=== PATIENT | female | born 1960 | race Caucasian/White ===

== ENCOUNTER → 2016-12-09 | Outpatient (CLI) | payer OTHER ==
[2013-10-21 11:30] VITALS: BP 94/63
[~2016-12-09] MED LIST: CHOL3000 PO; ESOM40SU PO; LEVO25TA4 PO; RIVA15TA PO; SUCR1TAB35 PO
--- NOTE | 2016-12-09 10:18 | RAD ---
Indication: Right arm pain. Technique: Grayscale, color-flow, and spectral waveform analysis of the right upper extremity was performed. Findings: All visualized vein segments are compressible. There is normal phasicity of waveform and augmentation. No thrombus on grayscale or color imaging is apparent. Impression: Exam is negative for deep vein thrombosis in the right upper extremity.
== END | disposition home or self-care (01) ==
LOC: US 08:05
PROVIDERS: ATTEND Internal Medicine Hematology & Oncology
DX: D47.2 Monoclonal gammopathy (principal); M79.601 Pain in right arm
CPT/HCPCS: 93971

== ENCOUNTER → 2017-10-16 | Outpatient (CLI) | payer OTHER ==
[2013-10-21 11:30] VITALS: BP 94/63
[~2017-10-16] MED LIST changes: +CYAN250012 SL; +CYCL10TA2 PO; +FOLI1TAB16 PO; +ONDA8TAB9 PO; +OXYC-323 PO; +PHEN-318 PO; +PROAIR HFA8.5 GM INH; +SENN1TAB70 PO; +TRIA15CR TP
[2017-10-16 15:17] LABS: BASO # 0.1 x10^3/uL (0.0-0.2); BASO % 1 % (0-3); EOS # 0.1 x10^3/uL (0.0-0.7); EOS % 1 % (0-3); HEMATOCRIT 37.8 % (36.0-47.0); HEMOGLOBIN 13.2 g/dL (12.0-15.5); LYMPH # 3.3 x10^3/uL (1.0-4.8); LYMPH % 33 % (24-48); MEAN CORPUSCULAR HEMOGLOBIN 34 pg (25-35); MEAN CORPUSCULAR HGB CONC 35 g/dL (31-37); MEAN CORPUSCULAR VOLUME 99 fL (79-100); MONO # 0.5 x10^3/uL (0.0-1.1); MONO % 5 % (0-9); NEUT # 6.1 x10^3uL (1.8-7.7); NEUT % 60 % (31-73); PLATELET COUNT 384 x10^3/uL (140-400); RED BLOOD COUNT 3.84 x10^6/uL (3.50-5.40); RED CELL DISTRIBUTION WIDTH 12.5 % (11.5-14.5); WHITE BLOOD COUNT 10.1 x10^3/uL (4.0-11.0)
[2017-10-16 15:40] LABS: ALBUMIN 3.6 g/dL (3.4-5.0); CALCIUM 9.4 mg/dL (8.5-10.1); CREATININE 0.9 mg/dL (0.6-1.0); GFR 64.5; TOTAL BILIRUBIN 0.6 mg/dL (0.2-1.0)
== END | disposition home or self-care (01) ==
LOC: SURGPAT 14:18
PROVIDERS: ATTEND Surgery
DX: K82.9 Disease of gallbladder, unspecified (principal); Z87.442 Personal history of urinary calculi; Z87.440 Personal history of urinary (tract) infections; Z85.43 Personal history of malignant neoplasm of ovary; Z85.42 Personal history of malignant neoplasm of other parts of uterus; Z85.3 Personal history of malignant neoplasm of breast; Z90.49 Acquired absence of other specified parts of digestive tract; Z90.710 Acquired absence of both cervix and uterus
CPT/HCPCS: 36415; 80048; 82040; 82247; 85025

== ENCOUNTER → 2017-10-22 | Day surgery (SDC) | payer OTHER ==
[~2017-10-22] VITALS: Ht 177.8 cm; Wt 86.6 kg
[~2017-10-22] MED LIST changes: +BUPIVACAINE-EPI 0.25%-1:200000 50 ML VIAL. ONE; +DEXAMETHASONE SOD PHOS 20 MG/5 ML VIAL. ONE; +GLUCAGON,HUMAN RECOMBINANT 1 MG/ML VIAL. ONE; +GLYCOPYRROLATE 1 MG/5 ML VIAL. ONE; +HYDROmorphone 2 MG/ML VIAL IV PRN; +IOHEXOL 300 MG/ML 100ML VIAL. ONE; +IV RINGERS,LACTATED 1000ML 1,000 ML IV SCH; +KETOROLAC 30 MG/ML INJ FOR OR. INJ ONE; +LIDOCAINE 1% PF 2 ML VIAL. ID PRN; +LIDOCAINE 1% PF 5 ML VIAL. ONE; +MORPHINE SULFATE 2 MG/ML VIAL. IV PRN; +NEOSTIGMINE METHYLSULFATE 5 MG/5 ML SYRINGE. ONE; +ONDANSETRON PF 4 MG/2 ML VIAL. IV PRN; +ONDANSETRON PF 4 MG/2 ML VIAL. ONE; +PROCHLORPERAZINE 10 MG/2 ML VIAL. ONE; +PROPOFOL 20 ML IV ONE; +ROCURONIUM 50 MG/5 ML VIAL. ONE; +SCOPOLAMINE 1.5MG PATCH. TD ONE; +SEVOFLURANE 31 TO 60 MINUTES. IH ONE; +SEVOFLURANE 61 TO 120 MINUTES. IH ONE; +SURGICEL HEMOSTAT 4X8 EACH. ONE; +ceFAZolin SODIUM 1 GM VIAL ONE; +fentaNYL PF VIAL 100 MCG/2 ML VIAL IV PRN; +fentaNYL PF VIAL 100 MCG/2 ML VIAL ONE; +oxyCODONE/APAP 5/325 1 TAB TABLET PO ONE
--- NOTE | 2017-10-22 10:52 | RAD ---
EXAM: Intraoperative cholangiogram HISTORY: Cholecystectomy. COMPARISON: None. FINDINGS: 3 fluoroscopic images were obtained during an intraoperative cholangiogram. The images demonstrate contrast opacification of the biliary tree and proximal duodenum. There is no evidence of a retained stone or stricture. The total fluoroscopy time is 0.1 minute. IMPRESSION: Intraoperative plantar without evidence of a retained stone or stricture. Electronically signed by: Brooke Wilder MD (10/22/2017 10:48 AM) [facility]
--- NOTE | 2017-10-22 11:19 | PDOC ---
BRIEF OPERATIVE NOTE Date: Oct 22, 2017 Pre-Op Diagnosis RUQ pain Post-Op Diagnosis same, liver nodule Procedure Performed l/s cholecystectomy with cholangiograms, liver biopsy Surgeon [place] Sox Analyst Rosalva Christy Anesthesia Type: General Blood Loss 25cc IV Fluid 2000cc Specimens Obtained GB Findings supple GB, normal grams, exophytic nodule lateral margin right lobe liver Complications none Operative Note Wk # [id number] GLENN KEARNEY MD Oct 22, 2017 11:19
--- NOTE | 2017-10-22 11:20 | DISCH ---
DISCHARGE INSTRUCTIONS Condition on Discharge Condition on Discharge: Stable Activity After Discharge Activity Instructions for Disc: Activity as tolerated, Avoid exertion Lifting Instructions after Dis: No heavy lifting Driving Instructions after Dis: Do not drive (for 3-4 days) Diet after Discharge Diet after Discharge: Regular Wound Incision Care Wound/Incision Care: Ice to area for comfort Other wound/incision instructi: june showthursday GLENN KEARNEY MD Oct 22, 2017 11:20
[2017-10-22] MEDS: fentaNYL PF VIAL 100 MCG/2 ML VIAL IV PRN ×2 (11:35→11:57)
[2017-10-22] MEDS: PROCHLORPERAZINE 10 MG/2 ML VIAL. IV PRN ×2 (11:39→11:57)
--- NOTE | 2017-10-22 11:41 | OP ---
DATE OF SURGERY: 10/22/2017 PREOPERATIVE DIAGNOSIS: Right upper quadrant pain. POSTOPERATIVE DIAGNOSIS: Right upper quadrant pain with a liver nodule. PROCEDURE: Laparoscopic cholecystectomy with cholangiograms, liver biopsy. SURGEON: Clayton Kearney MD [employer] INSTALLER: Dr. Ramirez and BROCK Alegre ANESTHESIA: General endotracheal. ESTIMATED BLOOD LOSS: 25 mL. INTRAVENOUS FLUID: 2 liters. INDICATIONS: The patient is a 57-year-old with right upper quadrant postprandial pain. She is brought for cholecystectomy. OPERATIVE FINDINGS: The gallbladder was supple. Cholangiograms were normal. A 2 x 3 cm exophytic nodule was present on the lateral aspect of right lobe of the liver. Visual inspection of the remainder of the abdomen failed to reveal obvious abnormalities. DESCRIPTION OF PROCEDURE: The patient brought to the operating suite, given a general endotracheal anesthetic and the abdomen prepped and draped in usual sterile fashion. An infraumbilical incision was infiltrated with local anesthetic, incised and a 5 mm Visiport used to safely gain access into the abdominal cavity. Pneumoperitoneum established. Camera inserted. Inspection carried out with results as noted above. With the table in reverse Trendelenburg rolled to the left, the epigastric, midclavicular, and lateral ports were placed under direct vision. The gallbladder was retracted superolaterally and the cystic duct and cystic artery were identified. The duct was clipped on the gallbladder side. Cholangiograms were made. These were normal. In light of this, the catheter was removed. The cystic duct was clipped x 3 and divided, taking care to avoid injury or compromise to the common duct. An anterior and posterior branch of the cystic artery were clipped and divided, and the gallbladder freed from the bed. Prior to freeing the gallbladder from the liver bed, scissors were used to biopsy the lateral lobe nodule. Good hemostasis obtained with cautery. Gallbladder was then freed from the fossa and placed in an EndoCatch bag. Good hemostasis was present at both the biopsy site and the gallbladder fossa. No evidence of bile leak was seen. Gallbladder delivered through the epigastric incision. Epigastric incision closed with interrupted 0 Vicryl suture. Intra-abdominal pressure decreased to 6 cm of water. No bleeding from the epigastric closure or from the midclavicular port site or lateral port after its removal. Abdomen decompressed, camera slowly removed, no bleeding seen. Skin incisions closed with subcuticular 4-0 Monocryl. Steri-Strips and sterile dressing applied. The patient awakened from her anesthetic and taken to the recovery room in satisfactory condition. CLAYTON KEARNEY MD DR: NICOLAS/sally JOB#: [id number] / [id number]
[2017-10-22 13:15] VITALS: BP 133/70
== END ==
LOC: SURG 08:36
PROVIDERS: ATTEND Surgery
DX: K82.8 Other specified diseases of gallbladder (principal); G51.0 Bell's palsy; E03.9 Hypothyroidism, unspecified; K21.9 Gastro-esophageal reflux disease without esophagitis; J45.909 Unspecified asthma, uncomplicated; F17.210 Nicotine dependence, cigarettes, uncomplicated; E66.3 Overweight; Z68.27 Body mass index [BMI] 27.0-27.9, adult; Z79.899 Other long term (current) drug therapy; Z72.89 Other problems related to lifestyle; Z98.890 Other specified postprocedural states; Z90.49 Acquired absence of other specified parts of digestive tract; Z90.710 Acquired absence of both cervix and uterus; Z85.42 Personal history of malignant neoplasm of other parts of uterus; Z85.43 Personal history of malignant neoplasm of ovary; Z85.3 Personal history of malignant neoplasm of breast; Z87.442 Personal history of urinary calculi; Z87.440 Personal history of urinary (tract) infections; Z88.7 Allergy status to serum and vaccine; Z88.8 Allergy status to other drugs, medicaments and biological substances; Z88.6 Allergy status to analgesic agent; Z91.040 Latex allergy status
CPT/HCPCS: 47562; 74300; J0690; J0780; J1100; J2405; J2704; J2710; J3010; J3490; J7030; J7120; Q9967; A7015; J1610; J1885

== ENCOUNTER → 2019-12-09 | Outpatient (CLI) | payer OTHER ==
[2017-10-22 13:15] VITALS: BP 133/70
[~2019-12-09] MED LIST changes: +ALBU2.5V8 INH; -BUPIVACAINE-EPI 0.25%-1:200000 50 ML VIAL. ONE; -DEXAMETHASONE SOD PHOS 20 MG/5 ML VIAL. ONE; +GADOTERATE 7.5 MMOL/15ML VIAL. IVP ONE; -GLUCAGON,HUMAN RECOMBINANT 1 MG/ML VIAL. ONE; -GLYCOPYRROLATE 1 MG/5 ML VIAL. ONE; -HYDROmorphone 2 MG/ML VIAL IV PRN; -IOHEXOL 300 MG/ML 100ML VIAL. ONE; -IV RINGERS,LACTATED 1000ML 1,000 ML IV SCH; -KETOROLAC 30 MG/ML INJ FOR OR. INJ ONE; -LIDOCAINE 1% PF 2 ML VIAL. ID PRN; -LIDOCAINE 1% PF 5 ML VIAL. ONE; -MORPHINE SULFATE 2 MG/ML VIAL. IV PRN; -NEOSTIGMINE METHYLSULFATE 5 MG/5 ML SYRINGE. ONE; -ONDANSETRON PF 4 MG/2 ML VIAL. IV PRN; -ONDANSETRON PF 4 MG/2 ML VIAL. ONE; -OXYC-323 PO; +OXYC1TAB15 PO; -PROAIR HFA8.5 GM INH; -PROCHLORPERAZINE 10 MG/2 ML VIAL. ONE; -PROPOFOL 20 ML IV ONE; -ROCURONIUM 50 MG/5 ML VIAL. ONE; -SCOPOLAMINE 1.5MG PATCH. TD ONE; -SEVOFLURANE 31 TO 60 MINUTES. IH ONE; -SEVOFLURANE 61 TO 120 MINUTES. IH ONE; -SURGICEL HEMOSTAT 4X8 EACH. ONE; -ceFAZolin SODIUM 1 GM VIAL ONE; -fentaNYL PF VIAL 100 MCG/2 ML VIAL IV PRN; -fentaNYL PF VIAL 100 MCG/2 ML VIAL ONE; -oxyCODONE/APAP 5/325 1 TAB TABLET PO ONE
--- NOTE | 2019-12-09 16:00 | KCIC ---
MRI Lumbar Spine without and with contrast History: Lumbar radiculopathy, microdiscectomy at L5-S1, right leg swelling, right lower extremity numbness Technique: Multiplanar, multi sequential pre and postcontrast MR imaging was performed of the lumbar spine. Comparison: None Findings: Lumbar vertebral body stature is maintained. There is negligible anterior spondylolisthesis L4-5. There is overall mild degenerative disc disease L3-4 through L5-S1. There are some small Tarlov cysts of the sacrum, largest on the left at S1 to about 1 cm. There is small posterior annular tear L5-S1. Conus terminates at L1. L1-2, L2-3: These levels were not included on the axial images. Neural foramina and spinal canal are adequate. L3-L4: There is minimal disc osteophyte complex. There is mild to moderate buckling of the ligamentum flavum and facet degenerative change greater on the left. There is minimal fluid in the right facet articulation. There is negligible disc osteophyte complex and bulge. There is mild narrowing of the far left lateral recess. There is minimal narrowing of the left neural foramen, right neural foramen adequate. L4-L5: There is mild buckling of the ligamentum flavum. There is gukw-[id number] right and mild left facet degenerative change. There is mild narrowing of the far left lateral recess. There is very mild narrowing of the inferior neural foramina bilaterally by minimal disc osteophyte complex. L5-S1: There is negligible disc osteophyte complex. Spinal canal and left neural foramen are adequate. There is mild narrowing of the inferior distal right neural foramen by disc osteophyte. There is contact of the extraforaminal right L5 nerve root by disc osteophyte complex and probable small protrusion Impression: 1. There is no significant lumbar spinal stenosis, mild narrowing of the far left lateral recesses at L3-4 and L4-5. There is mild neural foramina compromise as stated. There is contact of the extraforaminal right L5 nerve root by disc osteophyte complex and likely protrusion. There is mild degenerative disc disease L3-4 through L5-S1. Electronically signed by: Alex Carroll MD (12/09/2019 3:57 PM) [facility]
== END ==
LOC: KCIC MRI 13:04
PROVIDERS: ATTEND Psychiatry & Neurology Neurology with Special Qualifications in Child Neurology
DX: M51.17 Intervertebral disc disorders with radiculopathy, lumbosacral region (principal); M48.07 Spinal stenosis, lumbosacral region; M25.78 Osteophyte, vertebrae
CPT/HCPCS: 72158; 82565; A9575

== ENCOUNTER → 2020-05-21 | Outpatient (CLI) | payer OTHER ==
[2017-10-22 13:15] VITALS: BP 133/70
[~2020-05-21] MED LIST changes: +CARI250T PO; +CRESTOR5 MG PO; +CYAN10002 IM; +ERGO500027 PO; +EZET10TA20 PO; -GADOTERATE 7.5 MMOL/15ML VIAL. IVP ONE; +LEVO7.5T7 PO; +LUBI24CA7 PO; +OMEP20TA63 PO; +UBID200C27 PO
--- NOTE | 2020-05-21 12:58 | PDOC1 ---
INITIAL PAIN CONSULT DATE OF SERVICE: DOS: DATE: 05/21/20 TIME: 12:51 CHIEF COMPLAINT: Chief Complaint: Low back and right lower extremity pain HISTORY OF PRESENT ILLNESS: 60-year-old female presents history of pain low back right lower extremity since March 2019 not the result of any specific injury or accident that she is aware of chemo fairly abruptly was not the result of an injury but has been very painful in the low back rating the right lower extremity posterior gluteus posterior thigh posterior calf into the foot and toes as well on the right side patient ports cramping tingling numbness in the leg can be constant and shooting with walking standing worse with standing better with sitting or laying down but awakens her from sleep about 2-3 times at night patient reports is not effective bowel bladder control or ability to walk significantly but is more painful with standing patient reports she is taking Soma as well as amitriptyline and Lyrica the amitriptyline does help with the other 2 do not she is tried other [id number] anti-inflammatories without significant improvement as well patient reports has not had any formal physical therapy recently does do some stretching on her own no chiropractic treatment or other modalities of treatment at this time. Patient reports no bowel or bladder incontinence but some urgency with the pain at its worse. Patient scribes pain is constant shooting tingling and numbness in the right lower extremity aching and dull across the low back with cramping in the back as well patient rates her disability rating 0-10 10 being the worst is a 7 with family home responsibilities and recreation patient is a 4 with self-care and 0 life support activities. Patient have MRI scan of the lumbar spine showing mild narrowing of the far left lateral recess at L3-4 and L4-5 with mild neuroforaminal compromise L5-S1 showing contact of the extraforaminal right L5 nerve root by disc osteophyte complex and probable small protrusion. PAST MEDICAL HISTORY: PMH: History of ovarian and breast cancer, cigarette smoking, irritable bowel syndrome PREVIOUS SURGERIES: Past Surgical Hx: Hysterectomy, cholecystectomy, appendectomy, kyphoplasty, discectomy, breast surgery CURRENT MEDICATIONS: Current Meds: Active Scripts Medications Dose Route/Sig Max Daily Dose Days Date Category L-Methylfolate (Levomefolate Calcium) 7.5 Mg Tablet 5 Mg PO DAILY 05/21/20 Reported Coenzyme Q-10 (Ubidecarenone) 200 Mg Capsule 1 Cap PO DAILY 30 05/21/20 Reported Soma (Carisoprodol) 250 Mg Tablet 250 Mg PO TID 05/21/20 Reported Vitamin D2 (Ergocalciferol (Vitamin D2)) 1,250 Mcg Capsule 50,000 Units PO WEEKLY 05/21/20 Reported Amitiza (Lubiprostone) 24 Mcg Capsule 1 Cap PO BID 30 05/21/20 Reported Prilosec Otc (Omeprazole Magnesium) 20 Mg Tablet.dr 40 Mg PO DAILY 05/21/20 Reported Zetia (Ezetimibe) 10 Mg Tablet 10 Mg PO DAILY 05/21/20 Reported Crestor (Rosuvastatin Calcium) 5 Mg Tablet 10 Mg PO 3X/WEEK 05/21/20 Reported Cyanocobalamin Injection (Cyanocobalamin (Vitamin B-12)) 1,000 Mcg/1 Ml Vial 1 Ml IM QMONTH 05/21/20 Reported Proair Hfa Inhaler (Albuterol Sulfate) 8.5 Gm Hfa.aer.ad 1 Puff INH PRN Q6HRS PRN 10/22/17 Reported Zofran (Ondansetron Hcl) 8 Mg Tablet 8 Mg PO BID PRN 10/16/17 Reported Levothyroxine Sodium 25 Mcg Tablet 25 Mcg PO DAILY 05/15/13 Reported ALLERGIES; Allergies: Coded Allergies: NSAIDS (Non-Steroidal Anti-Inflamma (Verified Allergy, Intermediate, LYMPHOCYTIC COLITIS, 10/22/17) celecoxib (Verified Allergy, Intermediate, Swelling, 10/22/17) dichloralphenazone (Verified Allergy, Intermediate, 10/22/17) diphenhydramine (Verified Allergy, Intermediate, swelling, 10/22/17) swelling hydrocortisone (Verified Allergy, Intermediate, 10/22/17) influenza virus vaccine, specific (Verified Allergy, Intermediate, ARMENTA'S PALSY, 10/22/17) isometheptene mucate (Verified Allergy, Intermediate, 10/22/17) latex (Verified Allergy, Intermediate, 10/22/17) nitrofurantoin (Verified Allergy, Intermediate, 10/22/17) propoxyphene (Verified Allergy, Intermediate, SWELLEING, 10/22/17) FAMILY HISTORY: Family Hx: Colon cancer, strokes, heart disease SOCIAL HISTORY: Social Hx: Patient does not drink alcohol smokes less than a pack a day cigarettes has for 30 years not use any illegal illicit recreational drugs, patient is a registered nurse and works locally. REVIEW OF SYSTEMS: ROS: Positive for those items mentioned in history of present illness, all systems are reviewed, otherwise negative ,and are complete full and well-documented on patient's chart. PHYSICAL EXAM: VS: Blood pressure is 123/83 pulse 81 respirations 18 temperature 98.5 F height is 5 feet 10 inches weight is 216 pounds PE: PHYSICAL EXAMINATION: GENERAL: The patient is awake, alert, oriented, appropriate, very pleasant demeanor HEENT: Shows normocephalic, atraumatic. Extraocular movements are intact and symmetrical. Patient wearing eyeglasses oral cavity: Mucous membranes moist and pink. Dentition is intact. NECK: Shows anterior throat supple without palpable lymphadenopathy noted. Swallow reflex symmetrical. CHEST: Shows normal on inspection. Breath sounds are clear bilaterally, no rales or rhonchi auscultated. HEART: Shows S1, S2 clear. No murmurs auscultated. ABDOMEN: Soft, nontender, nondistended, obese. No palpable organomegaly is noted. No rebound or guarding demonstrated. BACK: Shows spine grossly in the midline. Normal-appearing cervical lordotic curvature. There is slightly increased thoracic kyphosis, some minor flattening of the lumbar lordotic curvature. Lumbar paraspinous muscles show symmetrical on inspection, on palpation shows some moderate tenderness diffusely throughout the upper, middle and lower distribution of the paraspinous muscles bilaterally and also into the lower thoracic paraspinous musculature, firm and tender, but without specific trigger points, without radiation of pain. The patient has good rotational motion of the lumbar spine, both laterally as well as extension and flexion without significant difficulty. No tenderness over the spinous processes, sacrum or sacroiliac regions. EXTREMITIES: Lower extremities show deep tendon reflexes 2+ in the patellar and tendo calcaneus tendons. Motor exam is 4 on a scale of 5 with right dorsiflexion, extension, quadriceps and hamstring flexion and 5/5 on the left. Peripheral pulses are 1+ posterior tibial. No peripheral edema is noted bilaterally. Lower extremities are warm and dry to touch, equal in color and appearance. Straight leg raise noted to be negative bilaterally. Gaenslen's and Wojciech's maneuvers are negative bilaterally as well. The patient is able to stand, stand on her toes that significant difficulty or loss of balance, walks with a normal-appearing gait not use any assistive devices to ambulate. SKIN: Shows warm and dry, good turgor. No edema. No sores, rashes or bruising throughout. IMPRESSION: Impression: 60-year-old female with long history low back right lower extremity pain in a radicular fashion MRI scan lumbar spine as noted Cigarette smoking Hypothyroidism Plan: Options were discussed with the patient including conservative medical management physical therapies interventional techniques. Patient would like to pursue interventional techniques. We discussed a lumbar epidural steroid injections description as well as anatomical model to describe the procedure. Patient will wait for preauthorization with her insurance provider once this is obtained we will plan on lumbar epidural steroid injection at that time a translaminar approach at the L5-S1 level with fluoroscopic guidance. In the meantime patient will continue with stretching strength exercises and medications as currently. FILIBERTO GARCIA MD May 21, 2020 12:58
== END | disposition home or self-care (01) ==
LOC: PNCL 07:45
PROVIDERS: ATTEND Anesthesiology
DX: M54.5 Low back pain (principal); M79.604 Pain in right leg; J45.909 Unspecified asthma, uncomplicated; K21.9 Gastro-esophageal reflux disease without esophagitis; E03.9 Hypothyroidism, unspecified; Z85.3 Personal history of malignant neoplasm of breast; Z79.899 Other long term (current) drug therapy; Z98.890 Other specified postprocedural states; Z87.448 Personal history of other diseases of urinary system; Z90.710 Acquired absence of both cervix and uterus; Z90.49 Acquired absence of other specified parts of digestive tract; Z80.0 Family history of malignant neoplasm of digestive organs; Z82.49 Family history of ischemic heart disease and other diseases of the circulatory system; Z88.0 Allergy status to penicillin; Z88.1 Allergy status to other antibiotic agents; Z88.2 Allergy status to sulfonamides; Z91.040 Latex allergy status; Z88.8 Allergy status to other drugs, medicaments and biological substances
CPT/HCPCS: 99205; G0463

== ENCOUNTER → 2020-06-15 | Outpatient (CLI) | payer OTHER ==
[2017-10-22 13:15] VITALS: BP 133/70
[~2020-06-15] MED LIST changes: +IOHEXOL 180 MG/ML 10 ML VIAL. ONE; +methylPREDNISolone ACETATE 40 MG/ML VIAL. ONE; +methylPREDNISolone ACETATE 80 MG/ML VIAL. ONE
--- NOTE | 2020-06-15 08:17 | PDOC4 ---
PROCEDURE Procedure Patient was consented for lumbar epidural steroid injection. Risks were dis cussed including but not limited to: Bleeding, infection, possibility of epidural hematoma and subsequent neurological compromise, dural puncture, headaches, spinal cord and/or nerve damage, side effects of steroid medication, and poor results regarding pain control. Patient understands and wished to proceed. Procedure is lumbar epidural steroid injection under local anesthetic using sterile prep and drape at the L4-5 level using C-arm fluoroscopic guidance in both AP and lateral views medications injected is 120 mg Depo-Medrol + 10 mL preservative-free normal saline and 2 mL contrast- condition at discharge is stable patient tolerated procedure well had no complications. FILIBERTO GARCIA MD Jun 15, 2020 08:17
--- NOTE | 2020-06-15 08:17 | PDOC ---
Progress Note - Pain Clinic Date of Service: DOS: DATE: 06/15/20 TIME: 08:14 Diagnosis: Dx: Lumbar radiculopathy with lumbar degenerative disc disease History or Present Illness: HPI: 60-year-old female returns follow-up status post initial evaluation preauthorization for lumbar epidural steroid injection. Patient is obtained this with her insurance provider now would like to proceed patient reports pain still in the low back and right lower extremity posterior gluteus posterior thigh posterior calf into the foot on the right side with tingling and numbness and burning in the foot aching and dull in the back sharp and shooting at times in the leg patient reports is a 6 on a scale of 10 at its worst over the past week 6 on average 6 its least and is a 6 today. Patient reports it awakens her from sleep least once or twice a night with some cramping in the calf as well on the right side only. Patient reports no new motor or sensory deficits no new bowel or bladder incontinence or other complaints. Physical Exam: VS: Blood pressure is 118/84 pulse 98 respirations 16 temperature 98.8 F height is 5 feet 10 inches weight is 213 pounds PE: PHYSICAL EXAMINATION: GENERAL: The patient is awake, alert, oriented, appropriate, very pleasant demeanor HEENT: Shows normocephalic, atraumatic. Extraocular movements are intact and symmetrical. Oral cavity: Mucous membranes moist and pink. NECK: Shows anterior throat supple without palpable lymphadenopathy noted. Swallow reflex symmetrical. CHEST: Shows normal on inspection. Breath sounds are clear bilaterally. HEART: Shows S1, S2 clear. No murmurs auscultated. ABDOMEN: Soft, nontender, nondistended. No palpable organomegaly is noted. No rebound or guarding demonstrated. BACK: Shows spine grossly in the midline. Normal-appearing cervical lordotic curvature. There is slightly increased thoracic kyphosis, some minor flattening of the lumbar lordotic curvature. Lumbar paraspinous muscles show symmetrical on inspection, on palpation shows some moderate tenderness diffusely throughout the upper, middle and lower distribution of the paraspinous muscles without specific trigger points, without radiation of pain. The patient has good rotational motion of the lumbar spine, both laterally as well as extension and flexion without significant difficulty. EXTREMITIES: Lower extremities show deep tendon reflexes 2+ in the patellar and tendo calcaneus tendons. Motor exam is 4 on a scale of 5 with right dorsiflexion, extension, quadriceps and hamstring flexion and 5/5 on the left. Peripheral pulses are 1+ posterior tibial. No peripheral edema is noted bilaterally. Lower extremities are warm and dry to touch, equal in color and appearance. SKIN: Shows warm and dry, good turgor. No edema. No sores, rashes or bruising throughout. Procedure: Procedure: Options were discussed with the patient. Patient chart reviews her current medication regimen updated current review of systems updated today as well. We will proceed with a lumbar epidural steroid ejections today with fluoroscopic guidance. Risks were discussed including but not limited to: Bleeding, infection, possibility of epidural hematoma and subsequent neurological compromise, dural puncture, headaches, spinal cord and/or nerve damage, side effects of steroid medication, and poor results regarding pain control. Patient understands and wished to proceed. Patient will return to the clinic in approximate 2 weeks for follow-up, was counseled as return appointment activity level and side effects to be aware of. Medication Injected: Med Injected: Procedure is lumbar epidural steroid injection under local anesthetic using sterile prep and drape at the L4-5 level using C-arm fluoroscopic guidance in both AP and lateral views medications injected is 120 mg Depo-Medrol + 10 mL preservative-free normal saline and 2 mL contrast- condition at discharge is stable patient tolerated procedure well had no complications. Condition at Discharge: Condition at Discharge: Condition at discharge is stable, patient tolerated the procedure well and had no complications. FILIBERTO GARCIA MD Jun 15, 2020 08:17
== END | disposition home or self-care (01) ==
LOC: PNCL 07:48
PROVIDERS: ATTEND Anesthesiology
DX: M51.16 Intervertebral disc disorders with radiculopathy, lumbar region (principal); K21.9 Gastro-esophageal reflux disease without esophagitis; E03.9 Hypothyroidism, unspecified; J45.909 Unspecified asthma, uncomplicated; Z85.3 Personal history of malignant neoplasm of breast; Z87.440 Personal history of urinary (tract) infections; Z79.899 Other long term (current) drug therapy; Z98.890 Other specified postprocedural states; Z90.710 Acquired absence of both cervix and uterus; Z87.891 Personal history of nicotine dependence; Z88.1 Allergy status to other antibiotic agents; Z88.2 Allergy status to sulfonamides; Z91.040 Latex allergy status; Z88.8 Allergy status to other drugs, medicaments and biological substances
CPT/HCPCS: 62323; J1030; J1040; Q9965

== ENCOUNTER → 2020-08-03 | Outpatient (CLI) | payer OTHER ==
[2017-10-22 13:15] VITALS: BP 133/70
[~2020-08-03] MED LIST changes: +AMIT50TA PO; +CETI10TA74 PO; -ERGO500027 PO; +ERGO500089 PO; +FLUT9.9S NS
--- NOTE | 2020-08-03 11:11 | PDOC ---
Progress Note - Pain Clinic Date of Service: DOS: DATE: 08/03/20 TIME: 11:08 Diagnosis: Dx: Lumbar radiculopathy with lumbar degenerative disc disease History or Present Illness: HPI: 60-year-old female returns follow-up status post lumbar epidural steroid injection x1. Patient reports about 75% improvement for several weeks following the injection pain returned however in the low back and the right lower extremity most significantly patient reports still better than it was previously but noticeable with walking standing initially standing still or sitting for prolonged periods patient reports the pain shooting into the right lower extremity tingling and burning cramping in the back at times as well as stabbing as well in the back patient reports an 8 on scale 10 is worse over the past week 5 on average 5 its least is a 5 today. Patient reports initially doing much better with distance walking doing household activities not following sitting for longer periods sleeping well at night patient reports that he has begun to awaken her from sleep over the past week or so but only once or twice a night. Patient reports no new motor or sensory deficits no new bowel or bladder incontinence or other complaints. Physical Exam: VS: Blood pressure is 131/86 pulse 90 respirations 18 temperature 99.1 F 5 feet 10 inches weight is 212 pounds PE: PHYSICAL EXAMINATION: GENERAL: The patient is awake, alert, oriented, appropriate, very pleasant demeanor HEENT: Shows normocephalic, atraumatic. Extraocular movements are intact and symmetrical. NECK: Shows anterior throat supple without palpable lymphadenopathy noted. Swallow reflex symmetrical. CHEST: Shows normal on inspection. Breath sounds are clear bilaterally. HEART: Shows S1, S2 clear. No murmurs auscultated. ABDOMEN: Soft, nontender, nondistended, obese. BACK: Shows spine grossly in the midline. Normal-appearing cervical lordotic curvature. There is slightly increased thoracic kyphosis, some minor flattening of the lumbar lordotic curvature. Lumbar paraspinous muscles show symmetrical on inspection, on palpation shows some moderate tenderness diffusely throughout the upper, middle and lower distribution of the paraspinous muscles, but without specific trigger points, without radiation of pain. The patient has good rotational motion of the lumbar spine, both laterally as well as extension and flexion without significant difficulty. EXTREMITIES: Lower extremities show deep tendon reflexes 2+ in the patellar and tendo calcaneus tendons. Motor exam is 4 on a scale of 5 with right dorsiflexion, extension, quadriceps and hamstring flexion and 5/5 on the left. Peripheral pulses are 1 posterior tibial. No peripheral edema is noted bilaterally. Lower extremities are warm and dry. SKIN: Shows warm and dry, good turgor. No edema. No sores, rashes or bruising throughout. Procedure: Procedure: Options were discussed with the patient. Patient chart was reviewed as her current medication regimen updated current review of systems updated today as well. We will proceed with a second in a series lumbar epidural steroid injection today with fluoroscopic guidance. Risks were discussed including but not limited to: Bleeding, infection, possibility of epidural hematoma and subsequent neurological compromise, dural puncture, headaches, spinal cord and/or nerve damage, side effects of steroid medication, and poor results regarding pain control. Patient understands and wished to proceed. Patient will return to the clinic in approximate 2 weeks for follow-up, was counseled as to return appointment activity level and side effects to be aware of. Medication Injected: Med Injected: Procedure is lumbar epidural steroid injection under local anesthetic using sterile prep and drape at the L5-S1 level using C-arm fluoroscopic guidance in both AP and lateral views medications injected is 120 mg Depo-Medrol +10mL preservative-free normal saline and 2 mL contrast- condition at discharge is stable patient tolerated procedure well had no complications. Condition at Discharge: Condition at Discharge: Condition at discharge is stable, patient already procedure well and had no complications. FILIBERTO GARCIA MD Aug 03, 2020 11:11
--- NOTE | 2020-08-03 11:12 | PDOC4 ---
PROCEDURE Procedure Patient was consented for lumbar epidural steroid injection. Risks were dis cussed including but not limited to: Bleeding, infection, possibility of epidural hematoma and subsequent neurological compromise, dural puncture, headaches, spinal cord and/or nerve damage, side effects of steroid medication, and poor results regarding pain control. Patient understands and wished to proceed. Procedure is lumbar epidural steroid injection under local anesthetic using sterile prep and drape at the L5 S1 level using C-arm fluoroscopic guidance in both AP and lateral views medications injected is 120 mg Depo-Medrol +10mL preservative-free normal saline and 2 mL contrast- condition at discharge is stable patient tolerated procedure well had no complications. FILIBERTO GARCIA MD Aug 03, 2020 11:12
== END | disposition home or self-care (01) ==
LOC: PNCL 10:11
PROVIDERS: ATTEND Anesthesiology
DX: M51.16 Intervertebral disc disorders with radiculopathy, lumbar region (principal); F41.9 Anxiety disorder, unspecified; K21.9 Gastro-esophageal reflux disease without esophagitis; E03.9 Hypothyroidism, unspecified; Z85.3 Personal history of malignant neoplasm of breast; Z79.899 Other long term (current) drug therapy; Z98.890 Other specified postprocedural states; Z87.891 Personal history of nicotine dependence; Z88.0 Allergy status to penicillin; Z88.1 Allergy status to other antibiotic agents; Z88.2 Allergy status to sulfonamides; Z88.8 Allergy status to other drugs, medicaments and biological substances
CPT/HCPCS: 62323; J1030; J1040; Q9965

== ENCOUNTER → 2020-09-11 | Outpatient (CLI) | payer OTHER ==
[2017-10-22 13:15] VITALS: BP 133/70
[~2020-09-11] MED LIST changes: +BEMP1TAB PO
--- NOTE | 2020-09-11 15:11 | PDOC ---
Progress Note - Pain Clinic Date of Service: DOS: DATE: 09/11/20 TIME: 15:07 Diagnosis: Dx: Lumbar radiculopathy with lumbar degenerative disc disease History or Present Illness: HPI: 60-year-old female returns for follow-up status post lumbar epidural steroid injections x2. Patient last seen August 03, 2020 did very well after last injection about 70% improvement after the first month or so the pain began to return in the low back and right lower extremity posterior gluteus posterior thigh posterior calf patient reports still significant finding of numbness and tingling in the right leg and foot. Patient reports that her stability has increased though and she has not been stumbling or falling as she did prior to her last visit. Patient rates her pain as a 7 on scale 10 is worse over the past week for an average 1 at its least is a 4 today. Patient reports increasing distance walking doing household activities greater ease and comfort working activities travel with greater ease as well as sleeping better at night patient reports still wakes her from sleep about once a night about every 6 hours or so on average. Patient reports no new medication or new statin that she is taking from her primary physician and is also taking new medication of extra strength Tylenol 650 mg which helps by about 30% or so. Physical Exam: VS: Blood pressure is 134/100 pulse 96 respirations 18 temperature 98.4 F weight is 211 pounds PE: PHYSICAL EXAMINATION: GENERAL: The patient is awake, alert, oriented, appropriate, very pleasant in demeanor. HEENT: Shows normocephalic, atraumatic. Extraocular movements are intact and symmetrical. NECK: Shows anterior throat supple without palpable lymphadenopathy noted. Swallow reflex symmetrical. CHEST: Shows normal on inspection. Breath sounds are clear bilaterally, no rales or rhonchi. HEART: Shows S1, S2 clear. No murmurs auscultated. ABDOMEN: Soft, nontender, nondistended, obese. BACK: Shows spine grossly in the midline. Normal-appearing cervical lordotic curvature. There is slightly increased thoracic kyphosis, some minor flattening of the lumbar lordotic curvature. Lumbar paraspinous muscles show symmetrical on inspection, on palpation shows some moderate tenderness diffusely throughout the upper, middle and lower distribution of the paraspinous muscles, but without specific trigger points, without radiation of pain. The patient has good rotational motion of the lumbar spine, both laterally as well as extension and flexion without significant difficulty. EXTREMITIES: Lower extremities show deep tendon reflexes 2+ in the patellar and tendo calcaneus tendons. Motor exam is 4 on a scale of 5 with right dorsiflexion, extension, quadriceps and hamstring flexion and 5/5 on the left. Peripheral pulses are 1+ posterior tibial. No peripheral edema is noted bilaterally. Lower extremities are warm and dry. SKIN: Shows warm and dry, good turgor. No edema. No sores, rashes or bruising throughout. Procedure: Procedure: Options were discussed with the patient. Patient chart reviews her current medication regimen updated current review of systems updated today as well. We will proceed with a third in the series lumbar epidural steroid injection today with fluoroscopic guidance. Risks were discussed including but not limited to: Bleeding, infection, possibility of epidural hematoma and subsequent neurological compromise, dural puncture, headaches, spinal cord and/or nerve damage, side effects of steroid medication, and poor results regarding pain control. Patient understands and wished to proceed. Patient will return to the clinic in approximately 2 weeks for follow-up, was counseled as return appointment activity level and side effects to be aware of. Medication Injected: Med Injected: Procedure is lumbar epidural steroid injection under local anesthetic using sterile prep and drape at the L5-S1 level using C-arm fluoroscopic guidance in both AP and lateral views medications injected is 120 mg Depo-Medrol +10mL preservative-free normal saline and 2 mL contrast- condition at discharge is stable patient tolerated procedure well had no complications. Condition at Discharge: Condition at Discharge: Condition at discharge is stable, patient tolerated the procedure well and had no complications. FILIBERTO GARCIA MD Sep 11, 2020 15:11
--- NOTE | 2020-09-11 15:12 | PDOC4 ---
Procedure Note: Procedure Note: Patient was consented for lumbar epidural steroid injection. Risks were discussed including but not limited to: Bleeding, infection, possibility of epidural hematoma and subsequent neurological compromise, dural puncture, headaches, spinal cord and/or nerve damage, side effects of steroid medication, and poor results regarding pain control. Patient understands and wished to proceed. Procedure is lumbar epidural steroid injection under local anesthetic using sterile prep and drape at the L5-S1 level using C-arm fluoroscopic guidance in both AP and lateral views medications injected is 120 mg Depo-Medrol +10mL preservative-free normal saline and 2 mL contrast- condition at discharge is stable patient tolerated procedure well had no complications. FILIBERTO GARCIA MD Sep 11, 2020 15:12
== END | disposition home or self-care (01) ==
LOC: PNCL 14:10
PROVIDERS: ATTEND Anesthesiology
DX: M51.16 Intervertebral disc disorders with radiculopathy, lumbar region (principal); K21.9 Gastro-esophageal reflux disease without esophagitis; E03.9 Hypothyroidism, unspecified; J45.909 Unspecified asthma, uncomplicated; Z90.710 Acquired absence of both cervix and uterus; Z98.890 Other specified postprocedural states; Z85.3 Personal history of malignant neoplasm of breast; Z87.891 Personal history of nicotine dependence; Z79.899 Other long term (current) drug therapy; Z88.1 Allergy status to other antibiotic agents; Z88.8 Allergy status to other drugs, medicaments and biological substances; Z91.040 Latex allergy status
CPT/HCPCS: 62323; J1030; J1040; Q9965